=== PATIENT | female | born 1985 | race American Indian/Alaskan Native ===

== ENCOUNTER 2023-10-23 17:35 | Emergency (ER) | payer OTHER ==
[~2023-10-23] VITALS: Ht 154.9 cm; Wt 73.0 kg
[2023-10-23] MEDS ORDERED: SODIUM CHLORIDE 0.9% 1,000 ML IV PRN (17:45)
[2023-10-23 17:50] LABS: BASOPHILS 0.4 % (0-2); EOSINOPHILS 1.1 % (0-6); HEMATOCRIT 32.8 % (35.0-50.0); HEMOGLOBIN 11.2 g/dL (12.0-18.0); LYMPHOCYTES 17.1 % (24-44); MCH 30.7 (27-36); MCHC 34.2 g/dl (30-36); MCV 89.9 fl (81-99); NEUTROPHILS 73.4 % (39-80); PLATELET COUNT 279 K/uL (140-440); RBC 3.65 M/ul (4.3-5.7); RDW 13.6 (10.5-15.0)
[2023-10-23 18:09] LABS: ALBUMIN 3.6 g/dL (3.4-5.0); ALBUMIN/GLOBULIN RATIO 0.92 (1.1-2.4); ANION GAP 13.2 (7-21); BUN/CREATININE RATIO 11.6 (6.0-28.6); CREATININE, SERUM 1.12 mg/dL (0.55-1.02); POTASSIUM 3.2 mmol/L (3.5-5.1); PROTEIN, TOTAL 7.5 g/dL (6.4-8.2)
[2023-10-23] MEDS ORDERED: POTASSIUM CHLORIDE 20 MEQ/15 ML CUP PO ONE (19:00)
[2023-10-23 19:50] VITALS: BP 115/70
== END 2023-10-23 19:50 | disposition home or self-care (01) ==
LOC: ED 17:35
PROVIDERS: Emergency Medicine
DX: T67.5XXA Heat exhaustion, unspecified, initial encounter (principal); X30.XXXA Exposure to excessive natural heat, initial encounter; Z91.048 Other nonmedicinal substance allergy status
CPT/HCPCS: 36415; 80053; 81001; 84703; 85025; 96360; 99285; A9270; J7030